=== PATIENT | female | born 1945 | race Caucasian/White ===

== ENCOUNTER 2016-10-25 09:51 | Emergency (ER) | payer OTHER ==
--- NOTE | 2016-10-25 11:25 | ED ORDER SUMMARY ---
..... Patient: KAREN BRITTON OrderSheet [facility] VisitID: [id number] [address] [place] [address] 71y, F Registration Date/Time: 10/25/2016 ORDER SHEET Weight: 60.3 kg (stated) Allergies: Tape, Vicodin, "4-5 other medications" pt states she can't remember, Aspirin GENERAL ORDERS: Cervical Spine 2 or 3V Urgent (10:10/25/2016 Cordell Fonseca) (Ack 10:25 TBergley) (11:40 MWinterer R.N.) Chest 2V Urgent (10:10/25/2016 Cordell Fonseca) (Ack 10:25 TBergley) (11:40 MWinterer R.N.) UA-Culture if indicated Urgent (10:10/25/2016 Cordell Fonseca) (Ack 10:25 TBergley) (10:37 MCook R.N.) Cardiac Panel Stat (10:10/25/2016 Cordell Fonseca) (Ack 10:25 TBergley) (10:37 MCook R.N.) MEDICATION ORDERS: IV FLUIDS: ORDER SHEET NOTES: [Electronically signed by Dominic Weeks Dr. (11:27 10/25/2016)] [Electronically signed by Rehan Mckenzie R.N. (12:33 10/25/2016)] [Electronically locked/signed by Rehan Mckenzie R.N. (12:33 10/25/2016)]
--- NOTE | 2016-10-25 11:25 | ED NURSING NOTES ---
Clinical Report - [facility] [address] [place] [address] 10/25/2016 9:53 Patient: KAREN BRITTON TRIAGE Triage time 10:Oct 25 2016. Acuity: LEVEL 3. Chief Complaint: CHEST PAIN. Alert. No acute distress. SEPSIS SCREEN: Sepsis Screen. Negative (no infection suspected/documented). --10:08 Reahn Mckenzie R.N. 10:00 10/25/16. BP: 155/98. HR: 77. RR: 16. O2 saturation: 100% on room air. Temp: 97.8 F. Pain level now: 06/16. --10:08 Rehan Mckenzie R.N. Weight: 60.3 kg stated. Height/Length: 63 inches Per Patient. BMI: 23.6. --10:00 Rehan Mckenzie R.N. Medications Diltiazem HCl Oral. --10:03 Rehan Mckenzie R.N. Omeprazole Oral. --10:13 Rehan Mckenzie R.N. Allergies Tape. Vicodin. Definite Moderate(rash) --10:03 Rehan Mckenzie R.N. "4-5 other medications" pt states she can't remember. --10:04 Rehan Mckenzie R.N. Aspirin. --10:07 Rehan Mckenzie R.N. History Arrived by private vehicle. Historian: patient. This started just prior to arrival and today. ( Pt had numbness in both her arms, both hands were tingly and hot. Denies SOB. Pt also reported back pain). ( Back pain). No difficulty breathing, nausea or fever. PAST MEDICAL HX: Hypertension. Immunizations: up-to-date. SOCIAL HX: Never smoker. Occasional alcohol use. No drug use. No infectious disease exposure. ABUSE ASSESSMENT: Abuse assessment: The patient was asked "Do you feel safe in your home?". No report of abuse. SELF HARM ASSESSMENT: A self harm assessment was performed. The patient answered "no" to the question "Have you recently felt down, depressed, or hopeless?", "Do you have thoughts of harming or killing yourself?" and "Have you recently had thoughts about harming or killing others?". FALL RISK ASSESSMENT: Fall risk assessment completed. No fall risk identified. NUTRITIONAL RISK ASSESSMENT: The nutritional risk assessment revealed no deficiencies. FUNCTIONAL ASSESSMENT: Functional assessment: no impairments noted. LEARNING NEEDS ASSESSMENT: The learning needs assessment revealed no barriers. SKIN INTEGRITY ASSESSMENT: Skin integrity risk assessment completed. No skin integrity risk identified. --10:08 Rehan Mckenzie R.N. PROBLEMS: Acid Reflux. Conjunctival Foreign Body. Corneal Abrasion. Irregular heartbeats. --10:04 Rehan Mckenzie R.N. Back Pain. --10:13 Rehan Mckenzie R.N. The following entry was modified by Rehan Mckenzie R.N., 10:13 <<STRICKEN ENTRY-- Hypertension. --21:00 Rehan Mckenzie R.N. --END STRIKE>>. ADDITIONAL SURGERIES: no known surgeries. Interventions ID band on patient. To treatment room. --10:08 Rehan Mckenzie R.N. PHYSICAL ASSESSMENT Ambulatory to room. GENERAL / NEURO / PSYCH: Alert. Oriented X 4. Appears in no acute distress. HEENT: Mucous membranes are pink. RESPIRATORY: Respirations not labored. CVS: Normal sinus rhythm noted. Heart sounds within normal limits. Pulses within normal limits. Capillary refill less than 2 seconds. EXTREMITIES: No lower extremity edema. SKIN: Skin is warm and dry. --10:12 Rehan Mckenzie R.N. RESPIRATORY: Chest pain reproducible. ( Pain reported to L anterior chest). --10:17 Rehan Mckenzie R.N. NURSING PROGRESS NOTES The plan of care for this patient has been created. Monitoring of patient in place. Patient gowned. Head of bed elevated. Reassurance given. Two patient identifiers checked. Call light placed in reach. Bed placed in lowest position. Patient ready for evaluation- ED physician notified. --10:14 Rehan Mckenzie R.N. 10:13 10/25/16. BP: 133/77. HR: 75. --10:14 Rehan Mckenzie R.N. EKG time: (1010). EKG was ordered, performed by a tech and shown to the ED physician. --10:15 Concha Hollis Patient returned from radiology by stretcher with tech. --10:49 Rehan Mckenzie R.N. DISPOSITION / DISCHARGE Condition at departure: improved and stable. The goals identified in the patient's plan of care were met. No learning barriers present. Discharge instructions provided and reviewed with the patient. Reviewed warnings (Pt instructed not to drive or consume ETOH while taking Baclofen). Reviewed medication(s) side effects, precautions, dosing and course information. Prescription(s) given to the patient (Baclofen). Reviewed referral to a primary care physician for followup. Activity restrictions (light lifting) reviewed (No more than 10 lbs.). Patient verbalized understanding. Written instructions provided in Burmese. The patient was discharged home. She left the Emergency Department ambulatory and via private vehicle. Patient driving. ( Pt dc'd in stable condition, ambulatory, states she feels better, asked many questions in regards to her DC care, discussed reasons to return to ED (chest pain, SOB, fever). Pt encouraged to FU with PCP in 2 days. Pt verbalized understanding.). --11:55 Rehan Mckenzie R.N. 11:51 10/25/16. BP: 141/73. HR: 69. RR: 18. O2 saturation: 95% on room air. Temp: 98.2 F. Pain level now: 06/16. --11:55 Rehan Mckenzie R.N. Departure time: 11:56 Oct 25 2016. --11:56 Rehan Mckenzie R.N. Locked/Released at 10/25/2016 12:33 by Rehan Mckenzie R.N.
--- NOTE | 2016-10-25 11:25 | ED ORDER SUMMARY ---
..... Patient: KAREN BRITTON OrderSheet [facility] VisitID: [id number] [address] [place] [address] 71y, F Registration Date/Time: 10/25/2016 ORDER SHEET Weight: 60.3 kg (stated) Allergies: Tape, Vicodin, "4-5 other medications" pt states she can't remember, Aspirin GENERAL ORDERS: Cervical Spine 2 or 3V Urgent (10:10/25/2016 Cordell Fonseca) (Ack 10:25 TBergley) (11:40 MWinterer R.N.) Chest 2V Urgent (10:10/25/2016 Cordell Fonseca) (Ack 10:25 TBergley) (11:40 MWinterer R.N.) UA-Culture if indicated Urgent (10:10/25/2016 Cordell Fonseca) (Ack 10:25 TBergley) (10:37 MCook R.N.) Cardiac Panel Stat (10:10/25/2016 Cordell Fonseca) (Ack 10:25 TBergley) (10:37 MCook R.N.) MEDICATION ORDERS: IV FLUIDS: ORDER SHEET NOTES: [Electronically signed by Dominic Weeks Dr. (11:27 10/25/2016)] [Electronically signed by Rehan Mckenzie R.N. (12:33 10/25/2016)] [Electronically locked/signed by Rehan Mckenzie R.N. (12:33 10/25/2016)]
--- NOTE | 2016-10-25 11:25 | ED CLINICAL REPORT ---
Clinical Report - Physicians/Mid Levels [facility] [address] [place] [address] 10/25/2016 9:53 Patient: KAREN BRITTON Time Seen: 10:01; initial patient contact. Arrived- By private vehicle. Historian- patient. HISTORY OF PRESENT ILLNESS Chief Complaint: CHEST PAIN. At its maximum, severity described as mild. When seen in the E.D., severity described as mild. It is described as burning and it is described as located in the central chest area and epigastric area. No radiation. This started today about 2 hours ago and is still present. Onset during rest. No nausea, vomiting, difficulty breathing or diaphoresis. Similar symptoms previously: Many times (pt states she has GERD and this is similar). Recent medical care: Not recently seen/assessed. REVIEW OF SYSTEMS No fever, chills, cough, pedal edema or calf pain. No abdominal pain. She has had neck pain. She has had new onset of numbness of the right hand (mild) and left hand (mild). All systems otherwise negative, except as recorded above. PAST HISTORY Acid Reflux. Conjunctival Foreign Body. Corneal Abrasion. Irregular heartbeats. Back Pain. SOCIAL HISTORY Never smoker. No alcohol use or drug use. ADDITIONAL NOTES The nursing notes have been reviewed. PHYSICAL EXAM Vital Signs: 10/25/2016 10:00 BP: 155/98. HR: 77. RR: 16. O2 saturation: 100%. Temp: 97.8 F. Pain level now: 06/16. Have been reviewed. Hypertensive. Heart rate normal. Respiratory rate normal. Temperature normal. Oxygen saturation normal. Appearance: Alert. Oriented X3. No acute distress. Eyes: Eyes normal inspection. ENT: Pharynx normal. Neck: Mild muscle spasm of the right and left posterior neck. Neck supple. Mild soft tissue tenderness in the right lower neck area and left lower neck area. No decreased ROM in the neck. No pain with movement of head/neck. No vertebral tenderness. CVS: Normal heart rate and rhythm. Heart sounds normal. Respiratory: No respiratory distress. Breath sounds normal. Abdomen: Soft and nontender. Bowel sounds normal. No mass. Skin: Skin warm and dry. Normal skin color. Extremities: No lower extremity edema. Neuro: Oriented X 3. LABS, X-RAYS, AND EKG EKG: EKG time: (1010). Normal sinus rhythm. Rate: 75. Normal P waves. Normal K[place]. Normal QRS complex. Normal axis. Normal QT and QTc. Non-specific ST depression in lead II, V4 and V5. No ST elevation. Prior EKG unavailable. The study has been interpreted contemporaneously by me. The study has been independently viewed by me. The EKG appears to be a good tracing. Interpretation time: 1010. C-Spine X-rays: Mild straightening of the cervical spine. Mild degenerative joint disease. No fracture or subluxation. Views: 3 view C-spine series. Technique: good. The X-rays were independently viewed by me and interpreted contemporaneously by me. Prior films were not available for comparison. Interpretation time: 11:07. Chest X-ray: No acute disease. Moderate hyperinflation present on the right and left with flattening of the diaphragm and an increased AP diameter. Consistent with COPD. Mild flattening of the right and left hemidiaphragm. Normal heart size. Mediastinum normal. Great vessels normal. Views: PA and lateral. Technique: good. The X-rays were independently viewed by me and interpreted contemporaneously by me. A comparison with prior films reveals that the findings are unchanged. Laboratory Tests: UA-Culture if indicated: (TARSHA: 10/25/2016 10:00) ( MsgRcvd 10/25/2016 11:01) Final results Test Result Flag Units (Reference) URINE COLOR YELLOW URINE APPEARANCE CLEAR URINE GLUCOSE NEGATIVE (NEGATIVE) URINE BILIRUBIN NEGATIVE (NEGATIVE) URINE KETONE NEGATIVE (NEGATIVE) URINE SPECIFIC GRAVITY 1.010 (1.010-1.030) URINE PH 6.0 (5.0-8.0) URINE PROTEIN NEGATIVE (NEGATIVE) URINE UROBILINOGEN 0.2 EU/dL (0.2-1.0) URINE NITRITE NEGATIVE (NEGATIVE) URINE BLOOD NEGATIVE (NEGATIVE) URINE LEUK ESTERASE NEGATIVE (NEGATIVE) URINE RBC NONE SEEN rbc/hpf (0-1) URINE WBC NONE SEEN wbc/hpf (0-1) URINE EPITHELIAL CELLS 0-1 EPI/hpf (0-5) URINE BACTERIA NONE SEEN (NONE SEEN) URINE COMMENT CULT NOT INDICATED URINE CULTURES ARE SET-UP BASED ON THE FOLLOWING CRITERIA:POSITIVE NITRITEPOSITIVE LEUKOCYTE ESTERASEGREATER THAN 10 WHITE BLOOD CELLSMODERATE (2+) OR GREATER BACTERIA CBC w Diff: (TARSHA: 10/25/2016 10:05) ( [facility] 10/25/2016 10:38) Final results Test Result Flag Units (Reference) WHITE BLOOD COUNT 8.3 K/uL (4.5-11.5) RED BLOOD COUNT 4.73 M/uL (4.00-5.20) HEMOGLOBIN 13.6 gm/dL (12.0-16.0) HEMATOCRIT 41.3 % (36.0-46.0) MEAN CELL VOLUME 87 fL (80-100) MEAN CORPUSCULAR HGB 29 pg (26-34) MEAN CORPUSCULAR HGB CONC 33 g/dL (31-37) RED CELL DISTRIBUTION WIDTH 15.1 H % (11.6-14.8) PLATELET COUNT 280 K/uL (150-400) NEUTROPHIL % 46.2 L % (50-75) LYMPH % 45.2 H % (25-40) MONO % 5.7 % (3-14) EOSINOPHIL % 2.5 % (0-4) BASOPHIL % 0.4 % (0-2) CHEM 13 PANEL: (TARSHA: 10/25/2016 10:05) ( [facility] 10/25/2016 11:05) Final results Test Result Flag Units (Reference) GLUCOSE 120 H mg/dL (70-110) BUN 8 mg/dL (7-18) CREATININE 0.9 mg/dL (0.6-1.3) Estimated GFR >60 mL/min Estimated GFR- >60 mL/min Note: Persistent reduction over 3 months in eGFR<60 mL/min/1.73 m2 defines CKD. Patients with eGFR values>=60 mL/min/1.73 m2 may also have CKD if evidence ofpersistent proteinuria. Additional information may be foundat www.kidney.org. SODIUM 141 mmol/L (136-145) POTASSIUM 3.4 L mmol/L (3.5-5.1) CHLORIDE 102 mmol/L (98-107) CARBON DIOXIDE 30 mmol/L (21-32) CALCIUM 9.0 mg/dL (8.5-10.1) TOTAL PROTEIN 7.5 g/dL (6.4-8.2) ALBUMIN 4.0 g/dL (3.3-5.0) BILIRUBIN, TOTAL 0.4 mg/dL (0.0-1.0) ALKALINE PHOSPHATASE 68 U/L (46-116) AST (SGOT) 21 U/L (15-37) ALT (SGPT) 26 U/L (12-78) MAGNESIUM 2.0 mg/dL (1.8-2.4) CPK 107 U/L (24-260) TROPONIN I 0.07 ng/mL (0.00-1.5) TROPONIN REFERENCE RANGE:<0.1 NEGATIVE0.1-1.5 INDETERMINANT>1.5 POSITIVE . PROGRESS AND PROCEDURES Course of Care: 11:25 10/25/16. Pt is currently asymptomatic w/out any intervention. Disposition: Discharged home in good condition. Condition: good. CLINICAL IMPRESSION Acute cervical strain. Atypical chest pain .12 lead EKG performed. INSTRUCTIONS No lifting greater than 10 lbs until well. No strenuous activity today, tomorrow. Your Current Medications: CONTINUE TAKING THE FOLLOWING MEDICATIONS: Diltiazem HCl Oral. Omeprazole Oral. Prescription Medications: Baclofen 10 mg: take 1 orally every 8 hours. Dispense twenty (20). No refills. Follow-up: Follow up with your doctor in about two days. Call for an appointment. Blood pressure screening was not performed during this visit because the patient has an active diagnosis of hypertension. (Electronically signed by Dominic Weeks Dr. 10/25/2016 11:27)
--- NOTE | 2016-10-25 11:54 | DIAGNOSTIC IMAGING REPORT ---
PROCEDURE: XR CHEST 2 VIEW INDICATION: CHEST PAIN TECHNIQUE: PA and lateral views. COMPARISON: Compared to chest x-ray on 06/29/2009. FINDINGS: Allowing for overlying wires and electrodes, lungs are clear. Heart and mediastinum are normal. Mild degenerative changes of the thoracic spine. IMPRESSION: 1. Negative chest.
--- NOTE | 2016-10-25 11:56 | DIAGNOSTIC IMAGING REPORT ---
PROCEDURE: XR CERVICAL SPINE 2 OR 3 VIEW INDICATION: NECK PAIN TECHNIQUE: Three views. COMPARISON: Compare radiographs of the cervical spine on 11/17/[address] soft tissue neck (04/13/2007). FINDINGS: There are mild degenerative changes with mild multilevel disc space narrowing and mild facet disease. The rest of the osseous structures and disc spaces are normal. No evidence of an acute process or fracture. IMPRESSION: 1. Negative cervical spine.
--- NOTE | 2016-10-25 12:33 | ED DISCHARGE INSTRUCTIONS ---
Patient: KAREN BRITTON General Instructions [facility] VisitID: [id number] [place] [address] 71y, F Registration Date/Time: 10/25/2016 Acute cervical strain. Atypical chest pain .12 lead EKG performed. INSTRUCTIONS No lifting greater than 10 lbs until well. No strenuous activity today, tomorrow. Your Current Medications: CONTINUE TAKING THE FOLLOWING MEDICATIONS: Diltiazem HCl Oral. Omeprazole Oral. Prescription Medications: Baclofen 10 mg: take 1 orally every 8 hours. Dispense twenty (20). No refills. Follow-up: Follow up with your doctor in about two days. Call for an appointment. Blood pressure screening was not performed during this visit because the patient has an active diagnosis of hypertension. ADDITIONAL INFORMATION Chest Pain, Noncardiac Based on your visit today, the exact cause of your chest pain is not certain. Your condition does not seem serious and your pain does not appear to be coming from your heart. However, sometimes the signs of a serious problem take more time to appear. Therefore, please watch for the warning signs listed below. Home Care: Rest today and avoid strenuous activity. Take any prescribed medicine as directed. Follow Up with your doctor or this facility as instructed or if you do not start to feel better within 24 hours. Get Prompt Medical Attention if any of the following occur: A change in the type of pain: if it feels different, becomes more severe, lasts longer, or begins to spread into your shoulder, arm, neck, jaw or back Shortness of breath or increased pain with breathing Cough with dark colored sputum (phlegm) or blood Weakness, dizziness, or fainting Fever of 100.4F (38C) or higher, or as directed by your healthcare provider Swelling, pain or redness in one leg Neck Sprain Or Strain A sudden force that causes turning or bending of the neck (such as in a car accident) can stretch or tear muscles (strain) and ligaments (sprain) and cause neck pain. Sometimes neck pain occurs after a simple awkward movement. In either case, muscle spasm is commonly present and contributes to the pain. Unless you had a forceful physical injury (for example, a car accident or fall), X-rays are usually not ordered for the initial evaluation of neck pain. If pain continues and dose not respond to medical treatment, X-rays and other tests may be performed at a later time. Home care The following guidelines will help you care for your injury at home: You may feel more soreness and spasm the first few days after the injury. Reduce your activity level until symptoms begin to improve. When lying down, use a comfortable pillow that supports the head and keeps the spine in a neutral position. The position of the head should not be tilted forward or backward. Use ice packs (ice in a plastic bag, wrapped in a towel) to treat acute pain. Apply for 20 minutes every 24 hours during the first two days. Then, begin local heat (hot shower, hot bath or heating pad) andmassageto reduce muscle spasm. Some patients feel best alternating hot and cold treatments, or just staying with one method only. Do what feels the best to you and gives the most relief. You may use acetaminophen or ibuprofen to control pain, unless another pain medicine was prescribed.If you have chronic liver or kidney disease or ever had a stomach ulcer or GI bleeding, talk with your doctor before using these medicines. Follow-up care Follow up with your physician or this facility if your symptoms do not show signs of improvement. Physical therapy may be needed. If you had X-rays today, they didnt show any broken bones, breaks, or fractures. Sometimes fractures dont show up on the first X-ray. Bruises and sprains can sometimes hurt as much as a fracture. These injuries can take time to heal completely. If your symptoms dont improve or they get worse, talk with your doctor. You may need a repeat X-ray. When to seek medical care Get prompt medical attention if any of the following occur: Pain becomes worse or spreads into your arms Weakness or numbness in one or both arms You have been given the following additional information: Chest Pain, Noncardiac Neck Sprain/Strain No lifting greater than 10 lbs until well. No strenuous activity today, tomorrow. (Electronically signed by Dominic Weeks Dr. 10/25/2016 11:27)
--- NOTE | 2016-10-25 12:33 | ED MED RECONCILIATION SUMMARY ---
Patient: KAREN BRITTON Medication Reconciliation Report [facility] VisitID: [id number] [address] [place] [address] 71y, F Registration Date/Time: 10/25/2016 Weight: 60.3 kg Height/Length: 63 in. BMI: 23.6 ALLERGIES: "4-5 other medications" pt states she can't remember, Aspirin, Tape, Vicodin The patient's Home Medications are listed below: CONTINUE TAKING THE FOLLOWING MEDICATIONS: Diltiazem HCl Oral Omeprazole Oral The source(s) of the original Home Medication information: Not obtained. The following Medications were given to the patient in the Emergency Department: None. The following Medications were prescribed to the patient: Baclofen 10 mg: take 1 orally every 8 hours. Dispense twenty (20). No refills. -- Dominic Weeks Dr.
--- NOTE | 2016-10-25 12:33 | ED MED RECONCILIATION SUMMARY ---
Patient: KAREN BIRTTON Medication Reconciliation Report [facility] VisitID: [id number] [address] [place] [address] 71y, F Registration Date/Time: 10/25/2016 Weight: 60.3 kg Height/Length: 63 in. BMI: 23.6 ALLERGIES: "4-5 other medications" pt states she can't remember, Aspirin, Tape, Vicodin The patient's Home Medications are listed below: CONTINUE TAKING THE FOLLOWING MEDICATIONS: Diltiazem HCl Oral Omeprazole Oral The source(s) of the original Home Medication information: Not obtained. The following Medications were given to the patient in the Emergency Department: None. The following Medications were prescribed to the patient: Baclofen 10 mg: take 1 orally every 8 hours. Dispense twenty (20). No refills. -- Dominic Weeks Dr.
--- NOTE | 2016-10-25 12:33 | ED MAR SUMMARY ---
..... Medication Administration Record [facility] [address], [place] [id number] Patient: KAREN BRITTON Visit ID: [id number] 71y, F Weight: 60.3 kg Height/Length: 63 in BMI: 23.6 ALLERGIES: Tape, Vicodin, "4-5 other medications" pt states she can't remember, Aspirin
--- NOTE | 2016-10-25 12:33 | ED MAR SUMMARY ---
..... Medication Administration Record [facility] [address] [place], [place] [id number] Patient: KAREN BRITTON Visit ID: [id number] 71y, F Weight: 60.3 kg Height/Length: 63 in BMI: 23.6 ALLERGIES: Tape, Vicodin, "4-5 other medications" pt states she can't remember, Aspirin
== END 2016-10-25 11:56 | disposition home or self-care (01) ==
LOC: ED SRH 09:51
DX: S16.1XXA Strain of muscle, fascia and tendon at neck level, initial encounter (principal); R07.89 Other chest pain; X58.XXXA Exposure to other specified factors, initial encounter; Y93.9 Activity, unspecified; Y92.9 Unspecified place or not applicable; Y99.9 Unspecified external cause status; I10 Essential (primary) hypertension; K21.9 Gastro-esophageal reflux disease without esophagitis; Z79.899 Other long term (current) drug therapy; Z88.5 Allergy status to narcotic agent
CPT/HCPCS: 90004; 90100; 90616; 92610; 92720; 95059